=== PATIENT | male | born 1935 | race Caucasian/White ===

== ENCOUNTER 2021-02-08 09:47 | Inpatient (IN) ==
[2021-02-08 10:33] LABS: Basophils % 0.3 % (0.0-0.8); Eosinophils # 0.5 10*3/uL (0.0-0.87); Eosinophils % 7.7 % (0.00-10.9); Hematocrit 36.2 VOL% (42.0-52.0); Hemoglobin 11.3 GM/DL (14.0-18.0); Immature Granulocytes % 0.3 %; Immature Granulocytes Absolute 0.02 #; Lymphocytes # 1.6 10*3/uL (1.4-4.0); Lymphocytes % 23.5 % (21.2-54.2); Mean Corpuscular HGB Conc 31.2 GM/DL (32-36); Mean Corpuscular Volume 91.6 FL (87-102); Mean Platelet Volume 10.1 FL (9.6-12.0); Monocytes % 10.2 % (1.7-12.7); Platelet Count 151 T/CUMM (130-400); Red Blood Count 3.95 MC/CUMM (3.8-5.5); Red Cell Distribution Width 13.6 % (9.3-17.3); White Blood Count 6.7 T/CUMM (4-12)
[2021-02-08 10:50] LABS: Alanine Aminotransferase 15 U/L (16-61); Albumin 3.4 G/DL (3.4-5.0); Alkaline Phosphatase 69 U/L (45-117); Aspartate Amino Transferase 28 U/L (0-37); Bilirubin,Total < 0.39 MG/DL (0.20-1.00); Blood Urea Nitrogen 20 MG/DL (7-18); Calcium 8.8 MG/DL (8.5-10.1); Carbon Dioxide 25 MMOL/L (21-32); Estimated Glom Filtration Rate 57 ML/MIN; Glucose 114 MG/DL (74-106); Osmolality,Calculated 282.4 MOS/KG (273-304); Potassium 4.1 MMOL/L (3.5-5.1); Sodium 140 MMOL/L (136-145); Total Protein 6.8 G/DL (6.4-8.2)
[2021-02-08] MEDS ORDERED: MAGNESIUM SULF RIDER 4 GM/100 ML PREMIX IV PRN (11:11)
[2021-02-08] MEDS ORDERED: MAGNESIUM SULF RIDER 2 GM/50 ML PREMIX IV PRN (11:11)
[2021-02-08] MEDS: VANCOMYCIN INJ 1,250 MG in SODIUM CHLORIDE 0.9% 250 ML IV SCH (17:06)
[2021-02-08] MEDS: ENOXAPARIN 40 MG/0.4 ML SYRINGE SUBCUT SCH (20:57)
[2021-02-09] MEDS: VANCOMYCIN INJ 1,250 MG in SODIUM CHLORIDE 0.9% 250 ML IV SCH ×2 (04:43→17:17)
[2021-02-09 05:42] LABS: Basophils % 0.3 % (0.0-0.8); Eosinophils # 0.4 10*3/uL (0.0-0.87); Eosinophils % 7.1 % (0.00-10.9); Hematocrit 34.8 VOL% (42.0-52.0); Hemoglobin 10.8 GM/DL (14.0-18.0); Immature Granulocytes % 0.3 %; Immature Granulocytes Absolute 0.02 #; Lymphocytes # 1.9 10*3/uL (1.4-4.0); Lymphocytes % 31.3 % (21.2-54.2); Mean Corpuscular Volume 92.8 FL (87-102); Monocytes % 10.3 % (1.7-12.7); Neutrophils % 50.7 % (38.7-73.9); Platelet Count 142 T/CUMM (130-400); Red Blood Count 3.75 MC/CUMM (3.8-5.5); Red Cell Distribution Width 13.6 % (9.3-17.3); White Blood Count 6.2 T/CUMM (4-12)
[2021-02-09 06:12] LABS: Albumin 3.1 G/DL (3.4-5.0); Bilirubin,Total 0.5 MG/DL (0.20-1.00); Calcium 8.8 MG/DL (8.5-10.1); Osmolality,Calculated 284.1 MOS/KG (273-304); Total Protein 6.1 G/DL (6.4-8.2)
[2021-02-09] MEDS: PANTOPRAZOLE 40 MG TABLET PO SCH (09:36)
[2021-02-09] MEDS: atenoloL 25 MG TABLET PO SCH ×2 (14:47→21:00)
[2021-02-09] MEDS: GABAPENTIN 300 MG CAPSULE PO SCH ×2 (14:47→21:01)
[2021-02-09] MEDS: DULoxetine 30 MG CAPSULE PO SCH (14:48)
[2021-02-09] MEDS: ALFUZOSIN 10 MG TABLET PO SCH (14:48)
[2021-02-09] MEDS: CLOPIDOGREL 75 MG TABLET PO SCH (14:48)
[2021-02-09] MEDS: ASPIRIN EC 81 MG TABLET PO SCH (14:48)
[2021-02-09] MEDS: CELECOXIB 200 MG CAPSULE PO SCH (14:48)
[2021-02-09] MEDS ORDERED: ONDANSETRON 4 MG/2 ML VIAL IV PRN (15:05)
[2021-02-09] MEDS ORDERED: DILTIAZEM CD 120 MG CAPSULE PO SCH (21:00)
[2021-02-09] MEDS: ENOXAPARIN 40 MG/0.4 ML SYRINGE SUBCUT SCH (21:00)
[2021-02-10] MEDS: VANCOMYCIN INJ 1,250 MG in SODIUM CHLORIDE 0.9% 250 ML IV SCH ×2 (04:34→15:18)
[2021-02-10 06:41] LABS: Basophils % 0.5 % (0.0-0.8); Eosinophils # 0.5 10*3/uL (0.0-0.87); Eosinophils % 7.4 % (0.00-10.9); Hemoglobin 10.5 GM/DL (14.0-18.0); Immature Granulocytes % 0.2 %; Immature Granulocytes Absolute 0.01 #; Lymphocytes # 1.6 10*3/uL (1.4-4.0); Lymphocytes % 23.9 % (21.2-54.2); Mean Corpuscular HGB Conc 31.8 GM/DL (32-36); Mean Corpuscular Volume 91.7 FL (87-102); Mean Platelet Volume 9.7 FL (9.6-12.0); Monocytes % 8.8 % (1.7-12.7); Neutrophils % 59.2 % (38.7-73.9); Platelet Count 141 T/CUMM (130-400); Red Cell Distribution Width 13.6 % (9.3-17.3); White Blood Count 6.5 T/CUMM (4-12)
[2021-02-10 07:02] LABS: Calcium 8.5 MG/DL (8.5-10.1); Osmolality,Calculated 280.4 MOS/KG (273-304); Potassium 3.9 MMOL/L (3.5-5.1)
[2021-02-10] MEDS: GABAPENTIN 300 MG CAPSULE PO SCH ×3 (09:48→20:42)
[2021-02-10] MEDS ORDERED: LIDOCAINE 2% 5 ML VIAL ONE (12:32)
[2021-02-10] MEDS ORDERED: propofoL 200 MG/20 ML VIAL IV ONE (12:32)
[2021-02-10] MEDS ORDERED: PHENYLEPHRINE 1 MG/10 ML SYRINGE IV ONE (12:33)
[2021-02-10] MEDS ORDERED: ETOMIDATE 40 MG/20 ML VIAL IV ONE (12:33)
[2021-02-10] MEDS: DULoxetine 30 MG CAPSULE PO SCH (14:33)
[2021-02-10] MEDS: ASPIRIN EC 81 MG TABLET PO SCH (14:34)
[2021-02-10] MEDS: ROSUVASTATIN 20 MG TABLET PO SCH (14:34)
[2021-02-10] MEDS: CLOPIDOGREL 75 MG TABLET PO SCH (14:34)
[2021-02-10] MEDS: ALFUZOSIN 10 MG TABLET PO SCH (14:34)
[2021-02-10] MEDS: PANTOPRAZOLE 40 MG TABLET PO SCH (14:34)
[2021-02-10] MEDS: CELECOXIB 200 MG CAPSULE PO SCH (14:34)
[2021-02-10] MEDS: atenoloL 25 MG TABLET PO SCH (15:03)
[2021-02-10] MEDS: hydrALAZINE 25 MG TABLET PO SCH (20:42)
[2021-02-10] MEDS: ENOXAPARIN 40 MG/0.4 ML SYRINGE SUBCUT SCH (20:42)
[2021-02-11] MEDS: VANCOMYCIN INJ 1,250 MG in SODIUM CHLORIDE 0.9% 250 ML IV SCH ×2 (04:55→16:49)
[2021-02-11 05:03] LABS: Basophils % 0.4 % (0.0-0.8); Eosinophils # 0.5 10*3/uL (0.0-0.87); Hematocrit 34.7 VOL% (42.0-52.0); Immature Granulocytes % 0.3 %; Immature Granulocytes Absolute 0.02 #; Lymphocytes # 1.8 10*3/uL (1.4-4.0); Mean Corpuscular HGB Conc 31.7 GM/DL (32-36); Mean Platelet Volume 10.2 FL (9.6-12.0); Monocytes % 7.9 % (1.7-12.7); Neutrophils % 59.4 % (38.7-73.9); Platelet Count 148 T/CUMM (130-400); Red Blood Count 3.77 MC/CUMM (3.8-5.5); Red Cell Distribution Width 13.6 % (9.3-17.3); White Blood Count 7.1 T/CUMM (4-12)
[2021-02-11 05:16] LABS: Calcium 8.6 MG/DL (8.5-10.1); Osmolality,Calculated 281.3 MOS/KG (273-304); Potassium 3.9 MMOL/L (3.5-5.1)
[2021-02-11] MEDS: DULoxetine 30 MG CAPSULE PO SCH (08:56)
[2021-02-11] MEDS: ALFUZOSIN 10 MG TABLET PO SCH (08:57)
[2021-02-11] MEDS: ASPIRIN EC 81 MG TABLET PO SCH (08:58)
[2021-02-11] MEDS: ROSUVASTATIN 20 MG TABLET PO SCH (08:58)
[2021-02-11] MEDS: GABAPENTIN 300 MG CAPSULE PO SCH ×3 (08:58→20:46)
[2021-02-11] MEDS: PANTOPRAZOLE 40 MG TABLET PO SCH (08:58)
[2021-02-11] MEDS: CELECOXIB 200 MG CAPSULE PO SCH (08:58)
[2021-02-11] MEDS: CLOPIDOGREL 75 MG TABLET PO SCH (08:58)
[2021-02-11] MEDS: hydrALAZINE 25 MG TABLET PO SCH ×3 (08:58→20:47)
[2021-02-11] MEDS: amLODIPine 5 MG TABLET PO SCH (08:58)
[2021-02-11] MEDS: BACITRACIN OINT 0.9 GM PACK TOP SCH ×2 (17:18→20:47)
[2021-02-11] MEDS: ENOXAPARIN 40 MG/0.4 ML SYRINGE SUBCUT SCH (20:48)
[2021-02-12] MEDS: VANCOMYCIN INJ 1,250 MG in SODIUM CHLORIDE 0.9% 250 ML IV SCH ×2 (04:50→15:01)
[2021-02-12] MEDS: PANTOPRAZOLE 40 MG TABLET PO SCH (08:19)
[2021-02-12] MEDS: DULoxetine 30 MG CAPSULE PO SCH (08:19)
[2021-02-12] MEDS: ASPIRIN EC 81 MG TABLET PO SCH (08:19)
[2021-02-12] MEDS: ALFUZOSIN 10 MG TABLET PO SCH (08:19)
[2021-02-12] MEDS: CLOPIDOGREL 75 MG TABLET PO SCH (08:19)
[2021-02-12] MEDS: ROSUVASTATIN 20 MG TABLET PO SCH (08:19)
[2021-02-12] MEDS: GABAPENTIN 300 MG CAPSULE PO SCH ×3 (08:20→21:29)
[2021-02-12] MEDS: hydrALAZINE 25 MG TABLET PO SCH (08:20)
[2021-02-12] MEDS: CELECOXIB 200 MG CAPSULE PO SCH (08:20)
[2021-02-12] MEDS: BACITRACIN OINT 0.9 GM PACK TOP SCH ×2 (08:20→21:30)
[2021-02-12] MEDS: amLODIPine 5 MG TABLET PO SCH (08:20)
[2021-02-12] MEDS: DILTIAZEM CD 120 MG CAPSULE PO SCH (21:29)
[2021-02-12] MEDS: ENOXAPARIN 40 MG/0.4 ML SYRINGE SUBCUT SCH (21:30)
[2021-02-13] MEDS: VANCOMYCIN INJ 1,250 MG in SODIUM CHLORIDE 0.9% 250 ML IV SCH (04:12)
[2021-02-13 06:26] LABS: Basophils % 0.3 % (0.0-0.8); Eosinophils # 0.7 10*3/uL (0.0-0.87); Eosinophils % 10.1 % (0.00-10.9); Hematocrit 36.1 VOL% (42.0-52.0); Hemoglobin 11.4 GM/DL (14.0-18.0); Immature Granulocytes % 0.3 %; Immature Granulocytes Absolute 0.02 #; Lymphocytes % 27.7 % (21.2-54.2); Mean Corpuscular HGB Conc 31.6 GM/DL (32-36); Mean Corpuscular Volume 90.7 FL (87-102); Monocytes % 9.9 % (1.7-12.7); Neutrophils % 51.7 % (38.7-73.9); Platelet Count 151 T/CUMM (130-400); Red Blood Count 3.98 MC/CUMM (3.8-5.5); Red Cell Distribution Width 13.6 % (9.3-17.3); White Blood Count 7.1 T/CUMM (4-12)
[2021-02-13 07:01] LABS: Calcium 8.4 MG/DL (8.5-10.1); Osmolality,Calculated 282.3 MOS/KG (273-304); Potassium 3.6 MMOL/L (3.5-5.1)
[2021-02-13] MEDS: atenoloL 25 MG TABLET PO SCH ×2 (08:22→20:56)
[2021-02-13] MEDS: CLOPIDOGREL 75 MG TABLET PO SCH (08:23)
[2021-02-13] MEDS: DULoxetine 30 MG CAPSULE PO SCH (08:23)
[2021-02-13] MEDS: CELECOXIB 200 MG CAPSULE PO SCH (08:23)
[2021-02-13] MEDS: PANTOPRAZOLE 40 MG TABLET PO SCH (08:23)
[2021-02-13] MEDS: ROSUVASTATIN 20 MG TABLET PO SCH (08:23)
[2021-02-13] MEDS: ALFUZOSIN 10 MG TABLET PO SCH (08:24)
[2021-02-13] MEDS: BACITRACIN OINT 0.9 GM PACK TOP SCH ×2 (08:24→20:57)
[2021-02-13] MEDS: ASPIRIN EC 81 MG TABLET PO SCH (08:24)
[2021-02-13] MEDS: GABAPENTIN 300 MG CAPSULE PO SCH ×3 (08:24→20:56)
[2021-02-13] MEDS: SULFAMETHOX/TRIMETHOPRIM 800-160 MG TABLET PO SCH (20:56)
[2021-02-13] MEDS: DILTIAZEM CD 120 MG CAPSULE PO SCH (20:57)
[2021-02-13] MEDS: ENOXAPARIN 40 MG/0.4 ML SYRINGE SUBCUT SCH (20:57)
[2021-02-14 05:44] LABS: Basophils % 0.4 % (0.0-0.8); Eosinophils # 0.7 10*3/uL (0.0-0.87); Eosinophils % 10.1 % (0.00-10.9); Hematocrit 36.3 VOL% (42.0-52.0); Hemoglobin 11.5 GM/DL (14.0-18.0); Immature Granulocytes % 0.3 %; Immature Granulocytes Absolute 0.02 #; Lymphocytes # 1.9 10*3/uL (1.4-4.0); Lymphocytes % 25.6 % (21.2-54.2); Mean Corpuscular HGB Conc 31.7 GM/DL (32-36); Mean Corpuscular Volume 91.2 FL (87-102); Mean Platelet Volume 10.1 FL (9.6-12.0); Monocytes % 10.1 % (1.7-12.7); Neutrophils % 53.5 % (38.7-73.9); Platelet Count 158 T/CUMM (130-400); Red Blood Count 3.98 MC/CUMM (3.8-5.5); Red Cell Distribution Width 13.8 % (9.3-17.3); White Blood Count 7.3 T/CUMM (4-12)
[2021-02-14 06:28] LABS: Calcium 8.8 MG/DL (8.5-10.1); Osmolality,Calculated 282.3 MOS/KG (273-304)
[2021-02-14 08:22] VITALS: BP 128/78
[2021-02-14] MEDS: GABAPENTIN 300 MG CAPSULE PO SCH (08:54)
[2021-02-14] MEDS: PANTOPRAZOLE 40 MG TABLET PO SCH (08:54)
[2021-02-14] MEDS: ROSUVASTATIN 20 MG TABLET PO SCH (08:54)
[2021-02-14] MEDS: atenoloL 25 MG TABLET PO SCH (08:54)
[2021-02-14] MEDS: ALFUZOSIN 10 MG TABLET PO SCH (08:54)
[2021-02-14] MEDS: CELECOXIB 200 MG CAPSULE PO SCH (08:54)
[2021-02-14] MEDS: DULoxetine 30 MG CAPSULE PO SCH (08:54)
[2021-02-14] MEDS: ASPIRIN EC 81 MG TABLET PO SCH (08:55)
[2021-02-14] MEDS: SULFAMETHOX/TRIMETHOPRIM 800-160 MG TABLET PO SCH (08:55)
[2021-02-14] MEDS: BACITRACIN OINT 0.9 GM PACK TOP SCH (08:55)
[2021-02-14] MEDS: CLOPIDOGREL 75 MG TABLET PO SCH (08:55)
[2021-02-14] MEDS ORDERED: LIDOCAINE 1%/EPI INJ 20 ML VIAL ONE (09:01)
[2021-02-14] MEDS ORDERED: BUPIVACAINE MPF 0.25% 30 ML VIAL ONE (09:01)
[2021-02-14] MEDS ORDERED: TISSUE ADHESIVE 1 EACH APPLICATOR TOP ONE (09:01)
== END 2021-02-14 11:09 | disposition home or self-care (01) | DRG 920 ==
LOC: N.ED 09:47 → SUATTDRO 11:11 → N.EDINP 11:11 → N.5E 11:48
PROVIDERS: ADMIT Internal Medicine Cardiovascular Disease; ATTEND Internal Medicine Cardiovascular Disease

== ENCOUNTER 2021-04-03 05:49 | Inpatient (IN) ==
[2021-04-03] MEDS ORDERED: SODIUM CHLORIDE 0.9% 1,000 ML IV SCH ×2 (06:00)
[2021-04-03] MEDS ORDERED: DIAZEPAM 5 MG TABLET PO ONE (06:00)
[2021-04-03] MEDS ORDERED: NALOXONE 0.4 MG/ML VIAL IV PRN (06:00)
[2021-04-03] MEDS ORDERED: VANCOMYCIN 500 MG VIAL IRRIG ONE (06:00)
[2021-04-03] MEDS ORDERED: VANCOMYCIN INJ 500 MG in SODIUM CHLORIDE 0.9% 100 ML IV ONE (06:00)
[2021-04-03] MEDS ORDERED: diphenhydrAMINE CAP 25 MG CAPSULE PO ONE (06:00)
[2021-04-03] MEDS ORDERED: DIAZEPAM 5 MG TABLET ONE (06:51)
[2021-04-03] MEDS ORDERED: diphenhydrAMINE CAP 25 MG CAPSULE ONE (06:51)
[2021-04-03] MEDS ORDERED: VANCOMYCIN 500 MG VIAL ONE ×2 (07:03)
[2021-04-03] MEDS ORDERED: LIDOCAINE 1% 20 ML VIAL ONE (07:03)
[2021-04-03] MEDS ORDERED: fentaNYL 100 MCG/2 ML VIAL ONE (07:26)
[2021-04-03] MEDS ORDERED: MIDAZOLAM 2 MG/2 ML VIAL ONE (07:26)
[2021-04-03] MEDS ORDERED: VANCOMYCIN 1,000 MG VIAL ONE (07:41)
[2021-04-03] MEDS ORDERED: TISSUE ADHESIVE 1 EACH APPLICATOR TOP ONE (08:14)
[2021-04-03] MEDS ORDERED: ACETAMINOPHEN 325 MG TABLET PO PRN (08:43)
[2021-04-03] MEDS ORDERED: BISACODYL 5 MG TABLET PO PRN (08:43)
[2021-04-03] MEDS ORDERED: ONDANSETRON 4 MG/2 ML VIAL IV PRN (08:43)
[2021-04-03] MEDS ORDERED: MAGNESIUM SULF RIDER 4 GM/100 ML PREMIX IV PRN (08:43)
[2021-04-03] MEDS ORDERED: MAGNESIUM SULF RIDER 2 GM/50 ML PREMIX IV PRN (08:43)
[2021-04-03] MEDS ORDERED: POTASSIUM CHLORIDE 20 MEQ TABLET PO PRN (08:43)
[2021-04-03] MEDS ORDERED: ALUMINUM/MAGNES/SIMETH MAX STR 30 ML UDCUP PO PRN (08:43)
[2021-04-03] MEDS: DULoxetine 30 MG CAPSULE PO SCH (15:20)
[2021-04-03] MEDS: atenoloL 25 MG TABLET PO SCH ×2 (15:20→21:06)
[2021-04-03] MEDS: CLOPIDOGREL 75 MG TABLET PO SCH (15:21)
[2021-04-03] MEDS: GABAPENTIN 300 MG CAPSULE PO SCH ×3 (15:21→21:04)
[2021-04-03] MEDS: VANCOMYCIN INJ 1,000 MG in SODIUM CHLORIDE 0.9% 250 ML IV SCH (15:21)
[2021-04-03] MEDS: DILTIAZEM CD 120 MG CAPSULE PO SCH (21:04)
[2021-04-03] MEDS: ROSUVASTATIN 20 MG TABLET PO SCH (21:04)
[2021-04-04] MEDS: VANCOMYCIN INJ 1,000 MG in SODIUM CHLORIDE 0.9% 250 ML IV SCH ×2 (05:09→23:30)
[2021-04-04 07:20] LABS: Basophils % 0.4 % (0.0-0.8); Eosinophils # 0.6 10*3/uL (0.0-0.87); Eosinophils % 7.4 % (0.00-10.9); Hematocrit 37.1 VOL% (42.0-52.0); Hemoglobin 11.5 GM/DL (14.0-18.0); Immature Granulocytes % 0.2 %; Immature Granulocytes Absolute 0.02 #; Lymphocytes # 2.1 10*3/uL (1.4-4.0); Lymphocytes % 25.2 % (21.2-54.2); Mean Corpuscular Volume 93.2 FL (87-102); Mean Platelet Volume 9.6 FL (9.6-12.0); Monocytes % 8.9 % (1.7-12.7); Neutrophils % 57.9 % (38.7-73.9); Platelet Count 165 T/CUMM (130-400); Red Blood Count 3.98 MC/CUMM (3.8-5.5); Red Cell Distribution Width 14.1 % (9.3-17.3); White Blood Count 8.4 T/CUMM (4-12)
[2021-04-04] MEDS: CELECOXIB 200 MG CAPSULE PO SCH (08:23)
[2021-04-04] MEDS: traMADol 50 MG TABLET PO PRN (08:23)
[2021-04-04 09:25] LABS: Calcium 8.8 MG/DL (8.5-10.1); Osmolality,Calculated 281.4 MOS/KG (273-304)
[2021-04-04] MEDS: DULoxetine 30 MG CAPSULE PO SCH (10:10)
[2021-04-04] MEDS: atenoloL 25 MG TABLET PO SCH ×3 (10:11→22:29)
[2021-04-04] MEDS: GABAPENTIN 300 MG CAPSULE PO SCH ×3 (10:11→22:29)
[2021-04-04] MEDS: CLOPIDOGREL 75 MG TABLET PO SCH (10:11)
[2021-04-04] MEDS: PANTOPRAZOLE 40 MG TABLET PO SCH (10:13)
[2021-04-04] MEDS: ASPIRIN CHEW 81 MG TABLET PO SCH (10:13)
[2021-04-04] MEDS: ALFUZOSIN 10 MG TABLET PO SCH (10:17)
[2021-04-04] MEDS ORDERED: diphenhydrAMINE CAP 25 MG CAPSULE PO PRN (10:49)
[2021-04-04] MEDS: DILTIAZEM CD 120 MG CAPSULE PO SCH (22:29)
[2021-04-04] MEDS: ROSUVASTATIN 20 MG TABLET PO SCH (22:29)
[2021-04-05 05:25] LABS: Basophils % 0.3 % (0.0-0.8); Eosinophils # 0.6 10*3/uL (0.0-0.87); Hematocrit 35.1 VOL% (42.0-52.0); Immature Granulocytes % 0.1 %; Immature Granulocytes Absolute 0.01 #; Lymphocytes # 1.8 10*3/uL (1.4-4.0); Lymphocytes % 26.3 % (21.2-54.2); Mean Corpuscular HGB Conc 31.3 GM/DL (32-36); Mean Corpuscular Volume 92.6 FL (87-102); Mean Platelet Volume 10.2 FL (9.6-12.0); Neutrophils % 54.3 % (38.7-73.9); Platelet Count 159 T/CUMM (130-400); Red Blood Count 3.79 MC/CUMM (3.8-5.5); White Blood Count 6.9 T/CUMM (4-12)
[2021-04-05 05:42] LABS: Calcium 8.6 MG/DL (8.5-10.1); Osmolality,Calculated 285.3 MOS/KG (273-304); Potassium 3.9 MMOL/L (3.5-5.1)
[2021-04-05] MEDS: ASPIRIN CHEW 81 MG TABLET PO SCH (09:32)
[2021-04-05] MEDS: CELECOXIB 200 MG CAPSULE PO SCH (09:33)
[2021-04-05] MEDS: GABAPENTIN 300 MG CAPSULE PO SCH ×3 (09:34→22:38)
[2021-04-05] MEDS: traMADol 50 MG TABLET PO PRN ×2 (09:34→15:41)
[2021-04-05] MEDS: ALFUZOSIN 10 MG TABLET PO SCH (09:35)
[2021-04-05] MEDS: CLOPIDOGREL 75 MG TABLET PO SCH (09:35)
[2021-04-05] MEDS: DULoxetine 30 MG CAPSULE PO SCH (09:35)
[2021-04-05] MEDS: atenoloL 25 MG TABLET PO SCH ×2 (09:36→22:38)
[2021-04-05] MEDS: PANTOPRAZOLE 40 MG TABLET PO SCH (09:38)
[2021-04-05] MEDS: VANCOMYCIN INJ 1,000 MG in SODIUM CHLORIDE 0.9% 250 ML IV SCH (18:07)
[2021-04-05] MEDS: ROSUVASTATIN 20 MG TABLET PO SCH (22:38)
[2021-04-05] MEDS: DILTIAZEM CD 120 MG CAPSULE PO SCH (22:39)
[2021-04-06 05:44] LABS: Basophils % 0.4 % (0.0-0.8); Eosinophils # 0.7 10*3/uL (0.0-0.87); Eosinophils % 9.4 % (0.00-10.9); Hematocrit 36.2 VOL% (42.0-52.0); Hemoglobin 11.2 GM/DL (14.0-18.0); Immature Granulocytes % 0.3 %; Immature Granulocytes Absolute 0.02 #; Lymphocytes % 27.2 % (21.2-54.2); Mean Corpuscular HGB Conc 30.9 GM/DL (32-36); Mean Corpuscular Volume 93.8 FL (87-102); Mean Platelet Volume 10.3 FL (9.6-12.0); Monocytes % 9.6 % (1.7-12.7); Neutrophils % 53.1 % (38.7-73.9); Platelet Count 166 T/CUMM (130-400); Red Blood Count 3.86 MC/CUMM (3.8-5.5); White Blood Count 7.3 T/CUMM (4-12)
[2021-04-06 06:04] LABS: Calcium 8.4 MG/DL (8.5-10.1); Osmolality,Calculated 282.3 MOS/KG (273-304); Potassium 4.1 MMOL/L (3.5-5.1)
[2021-04-06] MEDS: traMADol 50 MG TABLET PO PRN ×2 (09:46→14:29)
[2021-04-06] MEDS: ALFUZOSIN 10 MG TABLET PO SCH (09:46)
[2021-04-06] MEDS: GABAPENTIN 300 MG CAPSULE PO SCH ×3 (09:46→22:00)
[2021-04-06] MEDS: PANTOPRAZOLE 40 MG TABLET PO SCH (09:47)
[2021-04-06] MEDS: atenoloL 25 MG TABLET PO SCH ×2 (09:47→22:00)
[2021-04-06] MEDS: ASPIRIN CHEW 81 MG TABLET PO SCH (09:47)
[2021-04-06] MEDS: CLOPIDOGREL 75 MG TABLET PO SCH (09:48)
[2021-04-06] MEDS: DULoxetine 30 MG CAPSULE PO SCH (09:48)
[2021-04-06] MEDS: CELECOXIB 200 MG CAPSULE PO SCH (09:49)
[2021-04-06] MEDS: MEROPENEM 500 MG in SODIUM CHLORIDE 0.9% 100 ML IV SCH ×2 (13:01→22:01)
[2021-04-06] MEDS: ROSUVASTATIN 20 MG TABLET PO SCH (22:00)
[2021-04-06] MEDS: DILTIAZEM CD 120 MG CAPSULE PO SCH (22:00)
[2021-04-07] MEDS: MEROPENEM 500 MG in SODIUM CHLORIDE 0.9% 100 ML IV SCH ×3 (04:23→21:14)
[2021-04-07 06:10] LABS: Basophils % 0.4 % (0.0-0.8); Eosinophils # 0.7 10*3/uL (0.0-0.87); Eosinophils % 9.7 % (0.00-10.9); Hematocrit 36.7 VOL% (42.0-52.0); Hemoglobin 11.2 GM/DL (14.0-18.0); Immature Granulocytes % 0.1 %; Immature Granulocytes Absolute 0.01 #; Lymphocytes # 1.9 10*3/uL (1.4-4.0); Lymphocytes % 25.7 % (21.2-54.2); Mean Corpuscular HGB Conc 30.5 GM/DL (32-36); Mean Corpuscular Volume 93.9 FL (87-102); Mean Platelet Volume 10.4 FL (9.6-12.0); Monocytes % 9.7 % (1.7-12.7); Neutrophils % 54.4 % (38.7-73.9); Platelet Count 165 T/CUMM (130-400); Red Blood Count 3.91 MC/CUMM (3.8-5.5); White Blood Count 7.6 T/CUMM (4-12)
[2021-04-07 06:41] LABS: Calcium 8.6 MG/DL (8.5-10.1); Osmolality,Calculated 285.1 MOS/KG (273-304); Potassium 4.4 MMOL/L (3.5-5.1)
[2021-04-07] MEDS: DULoxetine 30 MG CAPSULE PO SCH (08:47)
[2021-04-07] MEDS: GABAPENTIN 300 MG CAPSULE PO SCH ×3 (08:47→21:13)
[2021-04-07] MEDS: PANTOPRAZOLE 40 MG TABLET PO SCH (08:47)
[2021-04-07] MEDS: ASPIRIN CHEW 81 MG TABLET PO SCH (08:48)
[2021-04-07] MEDS: CLOPIDOGREL 75 MG TABLET PO SCH (08:48)
[2021-04-07] MEDS: atenoloL 25 MG TABLET PO SCH ×2 (08:48→21:13)
[2021-04-07] MEDS: ALFUZOSIN 10 MG TABLET PO SCH (08:48)
[2021-04-07] MEDS: CELECOXIB 200 MG CAPSULE PO SCH (08:48)
[2021-04-07] MEDS: traMADol 50 MG TABLET PO PRN (09:06)
[2021-04-07] MEDS: ROSUVASTATIN 20 MG TABLET PO SCH (21:13)
[2021-04-07] MEDS: DILTIAZEM CD 120 MG CAPSULE PO SCH (21:14)
[2021-04-08] MEDS: MEROPENEM 500 MG in SODIUM CHLORIDE 0.9% 100 ML IV SCH ×2 (03:27→11:47)
[2021-04-08] MEDS: PANTOPRAZOLE 40 MG TABLET PO SCH (09:27)
[2021-04-08] MEDS: CLOPIDOGREL 75 MG TABLET PO SCH (09:27)
[2021-04-08] MEDS: DULoxetine 30 MG CAPSULE PO SCH (09:27)
[2021-04-08] MEDS: GABAPENTIN 300 MG CAPSULE PO SCH (09:27)
[2021-04-08] MEDS: CELECOXIB 200 MG CAPSULE PO SCH (09:27)
[2021-04-08] MEDS: ASPIRIN CHEW 81 MG TABLET PO SCH (09:27)
[2021-04-08] MEDS: ALFUZOSIN 10 MG TABLET PO SCH (09:27)
[2021-04-08] MEDS: atenoloL 25 MG TABLET PO SCH (09:28)
[2021-04-08 12:29] VITALS: BP 130/68
[2021-04-08] MEDS ORDERED: CLINDAMYCIN 300 MG CAPSULE PO SCH (15:00)
[2021-04-08] MEDS ORDERED: LACTOBACILLUS ACIDOPHILUS/BULGARICUS CHEW TABLET PO SCH (21:00)
== END 2021-04-08 12:03 | disposition home health service (06) | DRG 261 ==
LOC: N.CL 05:49 → N.TELEN 13:03
PROVIDERS: ADMIT Internal Medicine Cardiovascular Disease; ATTEND Internal Medicine Cardiovascular Disease
PROC: [UNRECOGNIZED PROCEDURE] (2021-04-03 07:45)